=== PATIENT | female | born 1965 | race Caucasian/White ===

== ENCOUNTER → 2016-11-08 | Outpatient (CLI) | payer OTHER ==
--- NOTE | 2016-11-08 16:23 | RADIOLOGY REPORT PS360 ---
BONE DENSITOMETRY(HIP:LT SPINE HISTORY: MENOPAUSAL AND PERIMENOPAUSAL DISORDER ORDERING PHYSICIAN: Gina Brandt APRN PATIENT AGE: 51 years COMPARISON: None FINDINGS: The BMD measured at the left femoral neck is 1.079 g/cm squared with a T score of 0.3. This is considered normal according to the World Health Organization criteria. Fracture risk is low. Recommend follow-up exam November 2018. The mean bone density of the L-spine has a T score 1.7. IMPRESSION: Normal bone density
--- NOTE | 2016-11-12 10:44 | RADIOLOGY REPORT PS360 ---
DIG MAMM-SCREEN DIONNE W/CAD CAD Screening COMPARISON: Digital mammograms 08/28/2015 and 03/12/2014 INDICATION: There is no personal or family history of breast cancer TECHNIQUE: Standard CC and MLO images were obtained. R2 CAD reviewed. FINDINGS: Moderate diffuse fibroglandular densities are seen in both breast primarily upper outer quadrants. Again noted is a large benign-appearing calcification upper inner quadrant right breast. There is no suspicious lesion in either breast and no suspicious microcalcifications. IMPRESSION: Stable exam no suspicious lesion seen recommend yearly follow-up BI-RADS CATEGORY: 2_Benign RECOMMENDED FOLLOWUP: 12M 12 MONTH FOLLOW-UP (A letter has been sent to the patient regarding results of the study.)
== END ==
LOC: RAD 13:49
DX: Z78.0 Asymptomatic menopausal state (principal); N95.9 Unspecified menopausal and perimenopausal disorder; Z13.820 Encounter for screening for osteoporosis; Z12.31 Encounter for screening mammogram for malignant neoplasm of breast
CPT/HCPCS: G0202

== ENCOUNTER → 2017-06-01 | Outpatient (CLI) | payer OTHER ==
[2017-06-01 09:21] LABS: BUN 17 mg/dL (7-18)
[2017-06-01 09:23] LABS: GFR (ESTIMATED) 58 ML/MIN (59-)
== END ==
LOC: LAB 08:02
PROVIDERS: Nurse Practitioner Family
DX: I10 Essential (primary) hypertension (principal)